=== PATIENT | female | born 1980 | race Caucasian/White ===

== ENCOUNTER 2016-09-09 07:45 | Emergency (ER) | payer BC, OTHER ==
[2016-09-09] MEDS ORDERED: SODIUM CHLORIDE 0.9% 1,000 ML IV STA (08:20)
[2016-09-09] MEDS ORDERED: ONDANSETRON 4 MG/2 ML VIAL IVP STA (08:20)
[2016-09-09 08:44] LABS: Basophils # (A) 0.1 k/uL (0-0.2); Basophils % (A) 1 %; CH 31.6; CHCM 33.9; Eosinophils # (A) 0.2 k/uL (0-0.7); Eosinophils % (A) 2 %; HCT 43.2 % (34.0-46.0); HDW 2.66; HGB 14.4 gm/dL (11.4-16.0); Luc # (Auto) 0.25; Luc % (Auto) 2; Lymphocytes # (A) 3.4 k/uL (1.0-4.8); Lymphocytes % (A) 30 %; MCH 31.1 pg (25.0-35.0); MCHC 33.2 g/dL (31.0-37.0); MCV 93.7 fL (80.0-100.0); Mean Platelet Volume 6.1; Monocytes # (A) 0.5 k/uL (0-1.0); Monocytes % (A) 4 %; Neutrophils # (A) 6.9 k/uL (1.3-7.7); Neutrophils % (A) 62 %; RBC 4.61 m/uL (3.80-5.40); RDW 13.1 % (11.5-15.5); WBC 11.3 k/uL (3.8-10.6); WBC (Perox) 11.49
[2016-09-09 08:46] LABS: Appearance,Urine Cloudy (Clear); Bacteria,Urine Rare /hpf; Bilirubin,Urine Negative (Negative); Glucose,Urine (UA) Negative (Negative); Ketones,Urine Negative (Negative); Leukocyte Esterase,Urine Negative (Negative); Mucus,Urine Rare /hpf; Nitrite,Urine Negative (Negative); PH, Urine 5.5 (5.0-8.0); Particle Count 6677; Protein,Urine Negative (Negative); RBC,Urine 1 /hpf (0-5); Specific Gravity,Urine 1.019 (1.001-1.035); Squamous Epithelial Cell,Urine 8 /hpf (0-4); UA Billing (MACRO vs. MICRO) MICRO; Urobilinogen,Urine <2.0 mg/dL (<2.0); WBC,Urine 2 /hpf (0-5)
[2016-09-09 08:56] LABS: ALT 34 U/L (9-52); AST 30 U/L (14-36); Alkaline Phosphatase 56 U/L (38-126); Amylase 66 U/L (30-110); Anion Gap 11 mmol/L; Blood Urea Nitrogen 12 mg/dL (7-17); Calcium 9.5 mg/dL (8.4-10.2); Carbon Dioxide 21 mmol/L (22-30); Chloride 108 mmol/L (98-107); Glucose 93 mg/dL (74-99); Non-African American GFR(MDRD) >60 (>60 ml/min/1.73 sqM); Potassium 4.4 mmol/L (3.5-5.1); Sodium 140 mmol/L (137-145); Total Bilirubin 0.7 mg/dL (0.2-1.3); Total Protein 8.2 g/dL (6.3-8.2)
[2016-09-09] MEDS ORDERED: DICYCLOMINE 10 MG/ML 2 ML AMP IM STA (08:57)
--- NOTE | 2016-09-09 09:05 | ED ---
General Adult HPI - General Chief complaint: Abdominal Pain Stated complaint: vomiting Time Seen by Provider: 09/09/16 08:16 Source: patient, RN notes reviewed Mode of arrival: ambulatory Limitations: no limitations - History of Present Illness Initial comments: Patient is a 36-year-old female who presents emergency room today with a chief complaint of symptoms of nausea vomiting diarrhea over the last 4 days. Denies any signs of blood in the emesis or stool. Does make to a history of ulcerative colitis 8 years ago no longer takes any medications for this. Denies any other sick contacts at home. Patient denies any recent fever, chills , shortness of breath, chest pain, back pain, numbness or tingling, dysuria or hematuria, constipation, headaches or visual changes, or any other complaints. - Related Data Home Medications Medication Instructions Recorded Confirmed ALPRAZolam [Xanax] 0.5 mg PO DAILY PRN 09/09/16 09/09/16 Previous Rx's Medication Instructions Recorded Dicyclomine [Bentyl] 20 mg PO QID #20 tablet 09/09/16 Ondansetron Odt [Zofran ODT] 4 mg PO Q8HR PRN #20 tab 09/09/16 Allergies Allergy/AdvReac Type Severity Reaction Status Date / Time No Known Allergies Allergy Verified 09/09/16 08:33 Review of Systems ROS Statement: Those systems with pertinent positive or pertinent negative responses have been documented in the HPI. ROS Other: All systems not noted in ROS Statement are negative. Past Medical History Additional Past Medical History / Comment(s): ulcertive colitis History of Any Multi-Drug Resistant Organisms: None Reported Additional Past Surgical History / Comment(s): carpel tunnel Past Psychological History: Anxiety Smoking Status: Never smoker Past Alcohol Use History: Rare Past Drug Use History: None Reported General Exam - General Exam Comments Initial Comments: General: The patient is awake and alert, in no distress, and does not appear acutely ill. Eye: Pupils are equal, round and reactive to light, extra-ocular movements are intact. No nystagmus. There is normal conjunctiva bilaterally. No signs of icterus. Ears, nose, mouth and throat: There are moist mucous membranes and no oral lesions. Neck: The neck is supple, there is no tenderness or JVD. Cardiovascular: There is a regular rate and rhythm. No murmur, rub or gallop is appreciated. Respiratory: Lungs are clear to auscultation, respirations are non-labored, breath sounds are equal. No wheezes, stridor, rales, or rhonchi. Gastrointestinal: Normal appearance and appeared normal bowel sounds. Soft on palpation. Patient does have mild tenderness left lower quadrant Musculoskeletal: Normal ROM, no tenderness. Strength 5/5. Sensation intact. Pulses equal bilaterally 2+. Neurological: A&O x 3. CN II-XII intact, There are no obvious motor or sensory deficits. Coordination appears grossly intact. Speech is normal. Skin: Skin is warm and dry and no rashes or lesions are noted. Psychiatric: Cooperative, appropriate mood & affect, normal judgment. Limitations: no limitations Course Vital Signs 09/09/16 07:57 Temperature 97.7 F Pulse Rate 76 Respiratory 18 Rate Blood Pressure 142/88 O2 Sat by Pulse 99 Oximetry Medical Decision Making - Medical Decision Making Patient reexamined at this time shows no signs of distress. She was to cover the stretcher. Patient's labs been reviewed mildly elevated white count 11.3. Patient has had symptoms of nausea vomiting diarrhea over the last 4 days. Patient's abdomen soft on palpation. Options were discussed about possible CT at this time shows B discharged home and following up. She'll be continued on Zofran and Bentyl for her symptoms advised increased fluids. Advised return if symptoms increase or worsen. She states understanding and is in agreement with this plan. - Lab Data Result diagrams: 09/09/16 08:29 09/09/16 08:29 Lab Results 09/09/16 09/09/16 09/09/16 Range/Units 08:29 08:29 08:29 WBC 11.3 H (3.8-10.6) k/uL RBC 4.61 (3.80-5.40) m/uL Hgb 14.4 (11.4-16.0) gm/dL Hct 43.2 (34.0-46.0) % MCV 93.7 (80.0-100.0) fL MCH 31.1 (25.0-35.0) pg MCHC 33.2 (31.0-37.0) g/dL RDW 13.1 (11.5-15.5) % Plt Count 346 (150-450) k/uL Neutrophils % 62 % Lymphocytes % 30 % Monocytes % 4 % Eosinophils % 2 % Basophils % 1 % Neutrophils # 6.9 (1.3-7.7) k/uL Lymphocytes # 3.4 (1.0-4.8) k/uL Monocytes # 0.5 (0-1.0) k/uL Eosinophils # 0.2 (0-0.7) k/uL Basophils # 0.1 (0-0.2) k/uL Sodium 140 (137-145) mmol/L Potassium 4.4 (3.5-5.1) mmol/L Chloride 108 H (98-107) mmol/L Carbon Dioxide 21 L (22-30) mmol/L Anion Gap 11 mmol/L BUN 12 (7-17) mg/dL Creatinine 0.72 (0.52-1.04) mg/dL Est GFR (MDRD) Af Amer >60 (>60 ml/min/1.73 sqM) Est GFR (MDRD) Non-Af >60 (>60 ml/min/1.73 sqM) Glucose 93 (74-99) mg/dL Calcium 9.5 (8.4-10.2) mg/dL Total Bilirubin 0.7 (0.2-1.3) mg/dL AST 30 (14-36) U/L ALT 34 (9-52) U/L Alkaline Phosphatase 56 (38-126) U/L Total Protein 8.2 (6.3-8.2) g/dL Albumin 4.7 (3.5-5.0) g/dL Amylase 66 (30-110) U/L Lipase 131 (23-300) U/L Urine Color Urine Appearance (Clear) Urine pH (5.0-8.0) Ur Specific [place] (1.001-1.035) Urine Protein (Negative) Urine Glucose (UA) (Negative) Urine Ketones (Negative) Urine Blood (Negative) Urine Nitrite (Negative) Urine Bilirubin (Negative) Urine Urobilinogen (<2.0) mg/dL Ur Leukocyte Esterase (Negative) Urine RBC (0-5) /hpf Urine WBC (0-5) /hpf Ur Squamous Epith Cells (0-4) /hpf Urine Bacteria (None) /hpf Urine Mucus (None) /hpf Urine HCG, Qual Not Detected (Not Detectd) 09/09/16 Range/Units 08:29 WBC (3.8-10.6) k/uL RBC (3.80-5.40) m/uL Hgb (11.4-16.0) gm/dL Hct (34.0-46.0) % MCV (80.0-100.0) fL MCH (25.0-35.0) pg MCHC (31.0-37.0) g/dL RDW (11.5-15.5) % Plt Count (150-450) k/uL Neutrophils % % Lymphocytes % % Monocytes % % Eosinophils % % Basophils % % Neutrophils # (1.3-7.7) k/uL Lymphocytes # (1.0-4.8) k/uL Monocytes # (0-1.0) k/uL Eosinophils # (0-0.7) k/uL Basophils # (0-0.2) k/uL Sodium (137-145) mmol/L Potassium (3.5-5.1) mmol/L Chloride (98-107) mmol/L Carbon Dioxide (22-30) mmol/L Anion Gap mmol/L BUN (7-17) mg/dL Creatinine (0.52-1.04) mg/dL Est GFR (MDRD) Af Amer (>60 ml/min/1.73 sqM) Est GFR (MDRD) Non-Af (>60 ml/min/1.73 sqM) Glucose (74-99) mg/dL Calcium (8.4-10.2) mg/dL Total Bilirubin (0.2-1.3) mg/dL AST (14-36) U/L ALT (9-52) U/L Alkaline Phosphatase (38-126) U/L Total Protein (6.3-8.2) g/dL Albumin (3.5-5.0) g/dL Amylase (30-110) U/L Lipase (23-300) U/L Urine Color Yellow Urine Appearance Cloudy H (Clear) Urine pH 5.5 (5.0-8.0) Ur Specific [place] 1.019 (1.001-1.035) Urine Protein Negative (Negative) Urine Glucose (UA) Negative (Negative) Urine Ketones Negative (Negative) Urine Blood Negative (Negative) Urine Nitrite Negative (Negative) Urine Bilirubin Negative (Negative) Urine Urobilinogen <2.0 (<2.0) mg/dL Ur Leukocyte Esterase Negative (Negative) Urine RBC 1 (0-5) /hpf Urine WBC 2 (0-5) /hpf Ur Squamous Epith Cells 8 H (0-4) /hpf Urine Bacteria Rare H (None) /hpf Urine Mucus Rare H (None) /hpf Urine HCG, Qual (Not Detectd) Disposition Clinical Impression: Nausea vomiting and diarrhea Disposition: HOME SELF-CARE Condition: Good Instructions: Abdominal Pain (ED) Additional Instructions: Please use medication as discussed. Please follow-up with GI/family doctor in the next 2 days of symptoms have not improved. Please return to emergency room if the symptoms increase or worsen or for any other concerns. Prescriptions: Dicyclomine [Bentyl] 20 mg PO QID #20 tablet Ondansetron Odt [Zofran ODT] 4 mg PO Q8HR PRN #20 tab PRN Reason: Nausea Referrals: Liu Randolph DO [Primary Care Provider] - 1-2 days Time of Disposition: 09:45
[2016-09-09 10:08] VITALS: BP 140/81; PULSE 69; RESP 16; TEMP 97.5
== END 2016-09-09 10:08 | disposition home or self-care (01) ==
LOC: EC 07:45
DX: R11.2 Nausea with vomiting, unspecified (principal); R19.7 Diarrhea, unspecified; R10.9 Unspecified abdominal pain; Z87.19 Personal history of other diseases of the digestive system
CPT/HCPCS: 36415; 80053; 82150; 83690; 85025; 81001; 81025; 99284; 96374; 96361; 96372; J0500; J2405

== ENCOUNTER → 2017-05-26 | Outpatient (CLI) | payer BC ==
--- NOTE | 2017-05-26 16:12 | XR ---
EXAMINATION TYPE: 2 views right hip and 2 views left hip DATE OF EXAM: 05/26/2017 COMPARISON: NONE HISTORY: 36-year-old female with bilateral hip pain and low back pain FINDINGS: There is minimal degenerative spurring noted at the hips. Hip joint space is relatively maintained. T iny degenerative labral ossification or tiny os acetabuli superolateral margin on the right. Scleroti c focus right intertrochanteric region suggests bone island. No acute fracture, subluxation, or dislo cation. IMPRESSION: Minimal degenerative spurring at both hips. No acute osseous abnormality seen.
--- NOTE | 2017-05-26 16:14 | XR ---
EXAMINATION TYPE: XR lumbosacral spine min 4V DATE OF EXAM: 05/26/2017 COMPARISON: NONE HISTORY: 36-year-old female right hip and low back pain TECHNIQUE: 5 views FINDINGS: 5 lumbar type vertebral bodies. There is leftward truncal shift noted. No definite pars intra-articul jameson defect identified on the oblique views. There is mild endplate spondylosis at L4-L5 and L5-S1. M ild disc interspace narrowing at L4-L5. Alignment is maintained and vertebral body heights are preser elsy. IMPRESSION: 1. Mild degenerative disc disease L4-L5 and L5-S1. 2. No vertebral compression collapse or malalignment. 3. Leftward truncal shift could be positional or due to muscle spasm.
== END | disposition home or self-care (01) ==
LOC: RADXRMAIN 14:53
PROVIDERS: ATTEND Family Medicine
DX: M51.37 Other intervertebral disc degeneration, lumbosacral region (principal); M76.892 Other specified enthesopathies of left lower limb, excluding foot; M76.891 Other specified enthesopathies of right lower limb, excluding foot
CPT/HCPCS: 72110; 73521

== ENCOUNTER 2018-01-17 16:24 | Emergency (ER) | payer BC ==
[2018-01-17 17:10] VITALS: TEMP 98
[2018-01-17] MEDS ORDERED: MORPHINE SULFATE 4 MG/ML SYRINGE IM STA ×2 (17:28→19:33)
[2018-01-17] MEDS ORDERED: KETOROLAC 30 MG/ML 1 ML VIAL IM STA (17:28)
[2018-01-17] MEDS ORDERED: ORPHENADRINE 30 MG/ML 2 ML VIAL IM STA (17:28)
--- NOTE | 2018-01-17 17:36 | ED ---
Back Pain HPI - General Chief Complaint: Back Pain/Injury Stated Complaint: Back injury Time Seen by Provider: 01/17/18 17:13 Source: patient Limitations: no limitations - History of Present Illness Initial Comments: 37-year-old female patient presents to the emergency department today for evaluation of increased low back pain. Patient states that approximately one week ago she was cleaning her son's bedroom when she started having pain to the low back. Patient states it radiates across her low back and does radiate around into the front of her thighs. Patient denies any numbness or tingling to the lower extremities. Denies any saddle anesthesia or loss of bowel or bladder control. Patient states is very difficult to lift her legs or walk. She denies any trauma to the back, or history of back surgery. States that she has had low back pain since May but it has never been this bad. Patient denies any recent rash, fever, chills, shortness breath, chest pain, abdominal pain, nausea, vomiting, diarrhea, constipation, dizziness, hematuria, dysuria, urinary urgency, urinary frequency, headache, visual changes, or any other complaints. Denies any chance of , did have a test at urgent care 1 week ago. - Related Data Home Medications Medication Instructions Recorded Confirmed ALPRAZolam [Xanax] 0.5 mg PO DAILY PRN 09/09/16 12/30/16 Amoxicillin 500 mg PO TID 12/30/16 12/30/16 Previous Rx's Medication Instructions Recorded Amoxicillin/Potassium Clav 1 each PO Q12HR #20 tab 12/30/16 [Augmentin 875-125 Tablet] predniSONE 40 mg PO DAILY #8 tab 12/30/16 Cyclobenzaprine [Flexeril] 10 mg PO TID #15 tab 01/17/18 Hydrocodone/Acetaminophen [[place] 1 tab PO Q6HR PRN #12 tab 01/17/18 5-325] predniSONE 50 mg PO DAILY #5 tablet 01/17/18 Allergies Allergy/AdvReac Type Severity Reaction Status Date / Time Penicillins Allergy Unknown Verified 01/17/18 17:10 Review of Systems ROS Statement: Those systems with pertinent positive or pertinent negative responses have been documented in the HPI. ROS Other: All systems not noted in ROS Statement are negative. Past Medical History Additional Past Medical History / Comment(s): ulcertive colitis History of Any Multi-Drug Resistant Organisms: None Reported Additional Past Surgical History / Comment(s): carpel tunnel Past Psychological History: Anxiety Smoking Status: Never smoker Past Alcohol Use History: Rare Past Drug Use History: None Reported General Exam Limitations: no limitations General appearance: alert, in no apparent distress, other (This is a well- developed, well-nourished adult female patient in no acute distress. Vital signs upon presentation are temperature 98.0F, pulse 89, respirations 20, blood pressure 145/82, pulse ox 98% on room air.) Eye exam: Present: normal appearance, PERRL, EOMI. Absent: scleral icterus, conjunctival injection, periorbital swelling ENT exam: Present: normal exam, normal oropharynx, mucous membranes moist Neck exam: Present: normal inspection. Absent: tenderness, meningismus, lymphadenopathy Respiratory exam: Present: normal lung sounds bilaterally. Absent: respiratory distress, wheezes, rales, rhonchi, stridor Cardiovascular Exam: Present: regular rate, normal rhythm, normal heart sounds. Absent: systolic murmur, diastolic murmur, rubs, gallop, clicks GI/Abdominal exam: Present: soft, normal bowel sounds. Absent: distended, tenderness, guarding, rebound, rigid Extremities exam: Present: normal inspection, full ROM, normal capillary refill , other (Skin to the lower extremities pink, warm, and dry. Cap refills less than 3 seconds. Post tibial pulses 2+ and equal bilaterally.). Absent: tenderness, pedal edema, joint swelling, calf tenderness Back exam: Present: normal inspection. Absent: vertebral tenderness Neurological exam: Present: alert, oriented X3, CN II-XII intact Psychiatric exam: Present: normal affect, normal mood Skin exam: Present: warm, dry, intact, normal color. Absent: rash Course Vital Signs 01/17/18 01/17/18 17:07 20:58 Temperature 98 F Pulse Rate 89 84 Respiratory 20 18 Rate Blood Pressure 145/82 175/105 O2 Sat by Pulse 98 98 Oximetry Medical Decision Making - Medical Decision Making 37-year-old female patient presented to the emergency department today for complaints of increased low back pain over the last week. Patient reported radiation of the pain to her bilateral anterior thighs. Physical examination did reveal some bilateral lower extremity weakness. Patient is otherwise neurologically intact with no concerns for cauda equina. CT of the lumbar spine was obtained and did show moderate disc herniation at L4 to L5 with protrusion into the spinal canal. There is small disc herniation at L5 to S1. I did discuss findings and results with the patient. She was treated here for with pain medication and intramuscular steroids. She was able to ambulate in the department. She is feeling somewhat improved upon reexamination. Patient be discharged home with a prescription for steroids and pain medication. She is instructed to continue taking anti-inflammatory medications. She is instructed to follow-up with Dr. Carvajal, creative services specialist at orthopedic [facility]. Return parameters were discussed in detail. She verbalizes understanding and agrees with this plan. - Lab Data Lab Results 01/17/18 01/17/18 Range/Units 17:45 17:45 Urine Color Yellow Urine Appearance Turbid H (Clear) Urine pH 6.5 (5.0-8.0) Ur Specific [place] 1.035 (1.001-1.035) Urine Protein 1+ H (Negative) Urine Glucose (UA) Negative (Negative) Urine Ketones Trace H (Negative) Urine Blood Negative (Negative) Urine Nitrite Negative (Negative) Urine Bilirubin Negative (Negative) Urine Urobilinogen 3.0 (<2.0) mg/dL Ur Leukocyte Esterase Moderate H (Negative) Urine RBC 3 (0-5) /hpf Urine WBC 22 H (0-5) /hpf Ur Squamous Epith Cells 47 H (0-4) /hpf Urine Mucus Few H (None) /hpf Urine HCG, Qual Not Detected (Not Detectd) - Radiology Data Radiology results: report reviewed, image reviewed CT lumbar spine was obtained without contrast. Lumbar vertebrae have fairly normal spacing alignment. The facet joints are intact. There is no compression fracture. There is no lumbar paraspinal mass. Posterior elements are intact. I see no bony destructive process. There is a broad-based moderate posterior disc herniation L4 to 5 into the spinal canal. There is developmentally adequate canal no significant spinal stenosis. There are smaller posterior disc bulge at L5 to S1. The sacroiliac joints appear intact. Impression by Dr. Levine shows L4 to 5 posterior disc herniation. No spinal stenosis. No fracture. Disposition Clinical Impression: Lumbar herniated disc Disposition: HOME SELF-CARE Condition: Good Instructions: Lumbar Disc Herniation (ED), Acute Low Back Pain (ED), Lumbar Radiculopathy (ED) Additional Instructions: Take medications as directed. Apply warm moist heat to the low back. Follow- up with health science specialist systems possible. Return here immediately for any new, worsening, or concerning symptoms. Prescriptions: Cyclobenzaprine [Flexeril] 10 mg PO TID #15 tab Hydrocodone/Acetaminophen [[place]ilot 5-325] 1 tab PO Q6HR PRN #12 tab PRN Reason: Pain predniSONE 50 mg PO DAILY #5 tablet Is patient prescribed a controlled substance at d/c from ED?: Yes When asked, does pt state using other controlled substances?: No If prescribed controlled substance>3 days was MAPS reviewed?: Prescribed <3 Days If opioid is for acute pain is fill amount 7 days or less?: Yes If Rx opioid, was Start Talking consent form obtained?: Yes Referrals: Liu Randolph DO [Primary Care Provider] - 1-2 days Charli Carvajal DO [Doctor of Osteopathic Medicine] - 1-2 days Time of Disposition: 20:41
[2018-01-17 18:34] LABS: Appearance,Urine Turbid (Clear); Bilirubin,Urine Negative (Negative); Blood,Urine Negative (Negative); Color,Urine Yellow; Glucose,Urine (UA) Negative (Negative); Ketones,Urine Trace (Negative); Leukocyte Esterase,Urine Moderate (Negative); Mucus,Urine Few /hpf; Nitrite,Urine Negative (Negative); PH, Urine 6.5 (5.0-8.0); Protein,Urine 1+ (Negative); RBC,Urine 3 /hpf (0-5); Specific Gravity,Urine 1.035 (1.001-1.035); Squamous Epithelial Cell,Urine 47 /hpf (0-4); WBC,Urine 22 /hpf (0-5)
--- NOTE | 2018-01-17 19:14 | CT ---
EXAMINATION TYPE: CT lumbar spine wo con DATE OF EXAM: 01/17/2018 7:08 PM COMPARISON: None HISTORY: Low back pain x [address] DLP: 1087 mGycm Automated exposure control for dose reduction was used. Unenhanced CT of the lumbar spine was performed. Bone and soft tissue window settings are submitted as well as coronal and sagittal reconstructions. Lumbar vertebra have fairly normal spacing and alignment. The facet joints are intact. There is no co mpression fracture. There is no lumbar paraspinal mass. Posterior elements are intact. I see no bony destructive process. There is a broad-based moderate posterior disc herniation at L4-5 into the spina l canal. There is developmentally adequate canal and no significant spinal stenosis. There are smalle r posterior disc bulge at L5-S1. The sacroiliac joints appear intact. IMPRESSION: L4-5 posterior disc herniation. No spinal stenosis. No fracture.
[2018-01-17] MEDS ORDERED: methylPREDNISolone SOD SUCCI 125 MG/2 ML VIAL IM ONE (19:33)
[2018-01-17 20:59] VITALS: BP 175/105; PULSE 84; RESP 18
== END 2018-01-17 21:01 | disposition home or self-care (01) ==
LOC: EC 16:24
DX: M51.27 Other intervertebral disc displacement, lumbosacral region (principal); Z88.0 Allergy status to penicillin
CPT/HCPCS: 81001; 81025; 72131; 99284; 96372 ×5; J2270; J2360; J2930; J1885

== ENCOUNTER 2021-02-03 10:18 | Emergency (ER) | payer BC ==
[2021-02-03 10:22] VITALS: TEMP 97.6
--- NOTE | 2021-02-03 10:31 | ED ---
General Adult HPI - General Chief complaint: Extremity Injury, Lower Stated complaint: Rt Foot/Lt Ankle Injury Time Seen by Provider: 02/03/21 10:24 Source: patient, RN notes reviewed, old records reviewed Mode of arrival: ambulatory Limitations: physical limitation - History of Present Illness Initial comments: 40-year-old female with bilateral foot and ankle injury. Patient states that 2 days ago she had injured her right great toe and foot. This had given her small amount of pain. Yesterday evening she had rolled her ankle and felt a popping s ensation on the left. She has pain in the foot and ankle on the left. No head neck or back injury. No other complaints. Patient is otherwise healthy. - Related Data Home Medications Medication Instructions Recorded Confirmed ALPRAZolam [Xanax] 0.5 mg PO DAILY PRN 09/09/16 12/30/16 Amoxicillin 500 mg PO TID 12/30/16 12/30/16 Previous Rx's Medication Instructions Recorded Amoxicillin/Potassium Clav 1 each PO Q12HR #20 tab 12/30/16 [Augmentin 875-125 Tablet] predniSONE [Deltasone] 40 mg PO DAILY #8 tab 12/30/16 Cyclobenzaprine [Flexeril] 10 mg PO TID #15 tab 01/17/18 Hydrocodone/Acetaminophen [[place] 1 tab PO Q6HR PRN #12 tab 01/17/18 5-325] predniSONE 50 mg PO DAILY #5 tablet 01/17/18 Ibuprofen [Motrin] 600 mg PO Q8HR PRN #24 tab 02/03/21 Allergies Allergy/AdvReac Type Severity Reaction Status Date / Time Penicillins Allergy Unknown Verified 02/03/21 10:22 Review of Systems ROS Statement: Those systems with pertinent positive or pertinent negative responses have been documented in the HPI. ROS Other: All systems not noted in ROS Statement are negative. Past Medical History Additional Past Medical History / Comment(s): ulcertive colitis, back pain History of Any Multi-Drug Resistant Organisms: None Reported Additional Past Surgical History / Comment(s): carpel tunnel Past Psychological History: Anxiety Smoking Status: Never smoker Past Alcohol Use History: Occasional Past Drug Use History: None Reported General Exam Limitations: physical limitation General appearance: alert, in no apparent distress Head exam: Present: atraumatic, normocephalic Eye exam: Present: normal appearance, PERRL ENT exam: Present: normal exam Neck exam: Present: normal inspection. Absent: tenderness, meningismus Respiratory exam: Present: normal lung sounds bilaterally. Absent: respiratory distress, wheezes Cardiovascular Exam: Present: regular rate, normal rhythm GI/Abdominal exam: Present: soft. Absent: distended, tenderness, guarding Extremities exam: Present: other (Right great toe, ecchymotic, no deformity. Left foot and ankle: There is decreased range of motion at the ankle secondary to pain. There is pain into the mid foot on the lateral aspect. There is some soft tissue swelling. Distal pulses are intact, normal cap refill.) Course Vital Signs 02/03/21 10:19 Temperature 97.6 F Pulse Rate 98 Respiratory 18 Rate Blood Pressure 190/95 O2 Sat by Pulse 99 Oximetry Procedures - Orthopedic Splinting/Casting Injury #1 Side: left Lower Extremity Injury Location: foot Lower Extremity Immobilizer: posterior splint Other Orthopedic Equipment: crutches Medical Decision Making - Medical Decision Making 40-year-old female with fall, left foot injury. Pain is worse on the lateral aspect of the left foot. X-rays show a minimally displaced fracture at the base of the fifth metatarsal. Patient is placed in a posterior splint. She has crutches and will be nonweightbearing. She's given orthopedic follow-up. RICE Disposition Clinical Impression: Fracture of fifth metatarsal bone of left foot Disposition: HOME SELF-CARE Condition: Good Instructions (If sedation given, give patient instructions): Foot Fracture in Adults (ED) Prescriptions: Ibuprofen [Motrin] 600 mg PO Q8HR PRN #24 tab PRN Reason: Pain Is patient prescribed a controlled substance at d/c from ED?: No Referrals: Liu Randolph DO [Primary Care Provider] - 1-2 days Srini Travis MD [STAFF PHYSICIAN] - 1-2 days Time of Disposition: 11:20
[2021-02-03 11:34] VITALS: BP 162/85; PULSE 80; RESP 16
--- NOTE | 2021-02-03 11:42 | XR ---
Bilateral feet and left ankle HISTORY: Trauma and pain 3 views of each foot, 3 views of the left ankle submitted Soft tissue swelling is noted at the left ankle. At the level of the proximal fifth metatarsal on the left there is a minimally displaced fracture. No evident dislocation, the right foot shows no fractu re. IMPRESSION: Proximal fifth metatarsal fracture left foot.
== END 2021-02-03 11:59 | disposition home or self-care (01) ==
LOC: EC 10:18
DX: S92.352A Displaced fracture of fifth metatarsal bone, left foot, initial encounter for closed fracture (principal); F41.9 Anxiety disorder, unspecified; Z88.0 Allergy status to penicillin; X50.1XXA Overexertion from prolonged static or awkward postures, initial encounter
CPT/HCPCS: 29515; 99284

== ENCOUNTER → 2022-03-14 | Outpatient (CLI) | payer BC ==
--- NOTE | 2022-03-14 12:25 | MR ---
EXAMINATION TYPE: MR lumbar spine wo con DATE OF EXAM: 03/14/2022 COMPARISON: CT lumbar spine 01/17/2018 HISTORY: DISC DEGENERATION, LUMBAR, PAIN TECHNIQUE: Multiplanar, multisequence images of the lumbar spine were acquired without IV contrast. Findings: Mild retrolisthesis of L4 on L5. Lumbar segments are intact. No paraspinal masses are identified. C onus medullaris has a normal appearance. Multiple level disc desiccation involving the lower lumbar s pine. L1-L2: Normal disc appearance without desiccation. No herniation, protrusion or disc bulging. No ca nal stenosis is present. Foramina are patent bilaterally. L2-L3: Normal disc appearance without desiccation. No herniation, protrusion or disc bulging. No ca nal stenosis is present. Foramina are patent bilaterally. L3-L4: No herniation, protrusion or disc bulging. No canal stenosis is present. Facet arthropathy wi th right greater than left. Mild right neural foraminal stenosis. The left neural foramen is patent. L4-L5: Central disc protrusion superimposed upon a broad-based disc bulge with minimal spinal canal n arrowing. Facet arthropathy. Mild left neuroforaminal stenosis. The right neural foramen is patent. L5-S1: No herniation, protrusion or disc bulging. No canal stenosis is present. Foramina are patent bilaterally. IMPRESSION: 1. L4-L5 small disc herniation superimposed upon a broad-based disc bulge with minimal spinal canal n arrowing. Mild left neuroforaminal stenosis at this level. 2. L3-L4 facet arthropathy resulting in mild right neural foraminal stenosis.
== END | disposition home or self-care (01) ==
LOC: RADMRIMAIN 11:16
PROVIDERS: ATTEND Physician Assistant Surgical
DX: M51.16 Intervertebral disc disorders with radiculopathy, lumbar region (principal); M47.26 Other spondylosis with radiculopathy, lumbar region; M48.061 Spinal stenosis, lumbar region without neurogenic claudication; M99.73 Connective tissue and disc stenosis of intervertebral foramina of lumbar region
CPT/HCPCS: 72148

== ENCOUNTER → 2022-05-02 | Outpatient (CLI) | payer BC ==
--- NOTE | 2022-05-03 05:49 | EEG ---
ELECTROENCEPHALOGRAM REPORT PREAMBLE: This is a 41-year-old female with a syncopal spell. Past March, the patient was wrapping presence when she became dizzy, lightheaded, experienced tunnel vision and felt like she was going to pass out. No loss of consciousness, tongue biting, or incontinence. She had 2 more episodes. She has history of hypertension and hyperglycemia. CURRENT MEDICATIONS: 1. Losartan. 2. Hydrochlorothiazide. 3. Pioglitazone. 4. Xanax (held). 5. NuvaRing. 6. Trulicity. EEG FINDINGS: This is a 21-channel digital EEG recorded with video component, utilizing 10/20 international system with referential and bipolar montages. Background consists of well developed, well regulated moderate voltage activity in 10 hertz alpha. Background is posterior dominant and reactive to eye opening and closing. Photic driving response was not seen. During middle and later part of the study, intermittent dysrhythmic theta with left posterior temporal sharp waves were seen. No electrographic seizure was recorded. Different stages of sleep were not seen. The EKG channel showed no obvious arrhythmia. IMPRESSION: This is an abnormal EEG due to presence of intermittent dysrhythmic theta and some left posterior temporal sharp waves seen intermittently during the study. 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 Clinical correlation is strongly recommended. Suggest prolonged, sleep- deprived EEG for further evaluation. MMODL / IJN: [id number] /
== END ==
LOC: NEUROMAIN 08:51
PROVIDERS: ATTEND Family Medicine
DX: R55 Syncope and collapse (principal); Z88.0 Allergy status to penicillin
CPT/HCPCS: 95816

== ENCOUNTER → 2022-07-31 | Outpatient (CLI) | payer BC | END | disposition home or self-care (01) | LOC: LABWHC1 15:14 | PROVIDERS: ATTEND Psychiatry & Neurology Neurology | DX: Z53.9 Procedure and treatment not carried out, unspecified reason (principal) ==

== ENCOUNTER → 2023-03-27 | Outpatient (CLI) | payer BC ==
--- NOTE | 2023-03-28 11:21 | NM ---
EXAMINATION TYPE: NM hepatobiliary w EF DATE OF EXAM: 03/27/2023 3:53 PM COMPARISON: None CLINICAL INDICATION:Female, 42 years old with history of R10.11 abd pain; TECHNIQUE: The patient was given 5.0 mCi of Technetium 99m-Mebrofenin as a radiotracer and multiple scintigraphic images were obtained of the abdomen. Gallbladder function was also assessed after the a dministration of ensure drink and additional scintigraphic images were obtained of the abdomen. A reg ion of interest was drawn over the gallbladder and a timing activity curve was generated. The gallbla dder ejection fraction was calculated. FINDINGS: Normal uptake of radiotracer was identified within the liver with excretion into the hepatic and comm on biliary ducts within 240 seconds. There was normal progressive washout of the liver over the cours e of the study. Radiotracer uptake within the gallbladder at 6 minutes as well as small bowel activit y was identified at 16 minutes. Maximum calculated gallbladder ejection fraction is: 69% at 30 minutes (Normal gallbladder ejection fraction is > 35%) IMPRESSION: 1. Normal hepatobiliary scan. 2. Normal ejection fraction.
== END | disposition home or self-care (01) ==
LOC: RADNMMAIN 12:44
PROVIDERS: ATTEND Family Medicine
DX: R10.11 Right upper quadrant pain (principal)
CPT/HCPCS: 78226; A9537